=== PATIENT | male | born 1940 | race Hispanic/Latino ===

== ENCOUNTER 2016-10-19 23:22 | Emergency (ER) | payer MEDICARE, OTHER ==
[2016-10-19 23:24] VITALS: BMI 33.9
--- NOTE | 2016-10-19 23:54 | C.PDOC ---
History Of Present Illness pt felt some "twitching " at the pacer site in am and the took his bp and was elevated. No cp , no f/c/n/v. Somewhat anxious Time Seen by Provider: 10/19/16 23:53 Chief Complaint (Nursing): Pacemaker Problem History Per: Patient History/Exam Limitations: no limitations Onset/Duration Of Symptoms: Hrs Current Symptoms Are (Timing): Still Present Severity: Mild Pain Scale Rating Of: 2 Reports Recently: Seen In ED, Treated By A Physician, Hospitalized Recent travel outside of the [place]: No Additional History Per: Patient Past Medical History Reviewed: Historical Data, Nursing Documentation, Vital Signs Vital Signs: Last Vital Signs Temp 98.2 F 10/20/16 00:01 Pulse 64 10/20/16 00:05 Resp 18 10/20/16 00:01 BP 134/83 10/20/16 00:05 Pulse Ox 98 10/20/16 00:45 - Medical History PMH: Diabetes, Gall Bladder Disease (GB removed), HTN, Hypercholesterolemia, Kidney Stones, Malignancy (prostate), Chronic Kidney Disease Surgical History: Appendectomy, Cholecystectomy, Pacemaker (2014), Tonsillectomy - [facility] Procedures ENDO RECTUM POLYPECTOMY (11/02/13) INITIAL INSERT TRANS LEADS INTO ATRIUM & VENTRICLE (01/31/14) INITIAL INSERTION OF DUAL-CHAMBER DEVICE (01/31/14) Family History: States: No Known Family Hx - Social History Hx Tobacco Use: No Hx Alcohol Use: No Hx Substance Use: No - Immunization History Hx Tetanus Toxoid Vaccination: No Hx Influenza Vaccination: No Hx Pneumococcal Vaccination: No Review Of Systems Constitutional: Negative for: Fever, Chills Eyes: Negative for: Redness ENT: Negative for: Throat Pain Cardiovascular: Negative for: Chest Pain Respiratory: Negative for: Shortness of Breath Gastrointestinal: Negative for: Nausea, Vomiting, Abdominal Pain Genitourinary: Negative for: Dysuria Musculoskeletal: Negative for: Back Pain Skin: Negative for: Rash, Lesions, Jaundice, Bruising Neurological: Negative for: Weakness Psych: Positive for: Anxiety Physical Exam - Physical Exam Appears: Non-toxic, No Acute Distress Skin: Warm, Dry Head: Normacephalic Eye(s): bilateral: Normal Inspection Oral Mucosa: Moist Neck: Supple Chest: Symmetrical, Other (pacer left) Cardiovascular: Rhythm Regular Respiratory: No Rales, No Rhonchi, No Wheezing Gastrointestinal/Abdominal: Soft, No Tenderness, No Distention Back: Normal Inspection Extremity: Normal ROM Extremity: Bilateral: Atraumatic, Normal Color And Temperature Neurological/Psych: Oriented x3, Normal Speech, Normal Cognition Gait: Steady ED Course And Treatment - Laboratory Results Result Diagrams: 10/20/16 00:20 10/20/16 00:20 ECG: Interpreted By Me, Viewed By Me ECG Rhythm: Sinus Rhythm (61), 1st Degree HB, Nonspecific Changes (atrial sensed , ventricular paced rhythm) O2 Sat by Pulse Oximetry: 98 Pulse Ox Interpretation: Normal - Radiology CXR: Interpreted by Me, Viewed By Me CXR Interpretation: Yes: Other (pacer in left). No: Infiltrates, Fracture, Pnemothorax Progress Note: cardiac work up Reevaluation Time: 01:30 Reassessment Condition: Improved Medical Decision Making Medical Decision Making: Upon provider reevaluation patient is feeling better, is medically stable, and requires no further treatment in the ED at this time. Patient will be discharged home with . Counseling was provided and all questions were answered regarding diagnosis and need for follow up with Dr Holcomb. There is agreement to discharge plan. Return if symptoms persist or worsen. Disposition Counseled Patient/Family Regarding: Studies Performed, Diagnosis, Need For Followup - Disposition Referrals: Malvin Holcomb MD [Staff Provider] - Disposition: HOME/ ROUTINE Disposition Time: 23:53 Condition: FAIR Additional Instructions: Please return if symptoms recur Instructions: Palpitations (ED), Chronic Hypertension (ED) - Clinical Impression Clinical Impression: HTN (hypertension)
[2016-10-20 00:03] VITALS: TEMP 98.2
[2016-10-20 00:36] LABS: BASO # 0.1 K/uL (0.0-0.2); BASO % 0.7 % (0.0-2.0); EOS % 14.8 % (0.0-4.0); HEMATOCRIT 43.1 % (35.0-51.0); LYMPH # 2.8 K/uL (1.0-4.3); LYMPH % 21.1 % (20.0-40.0); MEAN CELL VOLUME 94.4 fL (80.0-94.0); MEAN CORPUSCULAR HEMOGLOBIN 31.4 pg (27.0-31.0); MEAN CORPUSCULAR HGB CONC 33.3 g/dL (33.0-37.0); MEAN PLATELET VOLUME 10.4 fL (7.2-11.7); MONO # 0.8 K/uL (0.0-0.8); MONO % 5.6 % (0.0-10.0); RED CELL DISTRIBUTION WIDTH 12.8 % (11.5-14.5); WHITE BLOOD COUNT 13.5 K/uL (4.8-10.8)
[2016-10-20 00:38] LABS: INR 1.2
[2016-10-20 00:44] LABS: CHLORIDE 98 mmol/L (98-107)
[2016-10-20 00:45] LABS: POTASSIUM 3.5 mmol/L (3.6-5.2); SODIUM 133 mmol/L (132-148)
[2016-10-20 00:46] VITALS: O2SAT 98
[2016-10-20 00:48] LABS: ALB/GLOB RATIO 1.5 (1.0-2.1); ALKALINE PHOSPHATASE 57 U/L (38-126); ALT/SGPT 29 U/L (21-72); AST/SGOT 22 U/L (17-59); BILIRUBIN,TOTAL 1.1 mg/dL (0.2-1.3); BLOOD UREA NITROGEN 17 mg/dL (9-20); CALCIUM 9.1 mg/dl (8.6-10.4); CARBON DIOXIDE 28 mmol/L (22-30); GFR AFRICAN-AMERICAN > 60; GLUCOSE,RANDOM 86 mg/dL (75-110); TOTAL PROTEIN 6.3 g/dL (6.3-8.3)
[2016-10-20 01:18] LABS: THYROID STIMULATING HORMONE 1.11 mIU/L (0.46-4.68)
[2016-10-20 01:47] VITALS: BP 125/77; PULSE 69; RESP 20
--- NOTE | 2016-10-20 08:17 | RAD ---
PROCEDURE: CHEST RADIOGRAPH, 1 VIEW HISTORY: chest pain COMPARISON: None available. FINDINGS: LUNGS: Clear. PLEURA: No pneumothorax or pleural fluid seen. CARDIOVASCULAR: Normal. Pacemaker and leads are in place. OSSEOUS STRUCTURES: No significant abnormalities. VISUALIZED UPPER ABDOMEN: Normal. OTHER FINDINGS: None. IMPRESSION: No active disease.
--- NOTE | 2016-10-20 17:36 | CARD ---
APPROVED REPORT EKG Measurement Heart [id number] <Conclusion> Atrial-sensed ventricular-paced rhythm with prolonged AV conduction Abnormal ECG
== END 2016-10-20 01:47 | disposition home or self-care (01) ==
LOC: C.ER 23:22
DX: I12.9 Hypertensive chronic kidney disease with stage 1 through stage 4 chronic kidney disease, or unspecified chronic kidney disease (principal); N18.9 Chronic kidney disease, unspecified; R00.2 Palpitations; E11.9 Type 2 diabetes mellitus without complications; E78.00 Pure hypercholesterolemia, unspecified

== ENCOUNTER 2017-01-14 16:34 | Inpatient (IN) | payer MEDICARE, OTHER ==
[2017-01-14 16:42] VITALS: BMI 32.5
[2017-01-14 17:16] LABS: BASO # 0.1 K/uL (0.0-0.2); BASO % 0.9 % (0.0-2.0); EOS # 1.9 K/uL (0.0-0.7); EOS % 16.7 % (0.0-4.0); HEMOGLOBIN 14.3 g/dL (12.0-18.0); LYMPH # 2.2 K/uL (1.0-4.3); LYMPH % 19.6 % (20.0-40.0); MEAN CELL VOLUME 93.7 fL (80.0-94.0); MEAN CORPUSCULAR HEMOGLOBIN 31.8 pg (27.0-31.0); MEAN PLATELET VOLUME 10.1 fL (7.2-11.7); MONO # 0.8 K/uL (0.0-0.8); MONO % 6.7 % (0.0-10.0); NEUT # 6.3 K/uL (1.8-7.0); NEUT % 56.1 % (50.0-75.0); NRBC % 0.1 % (0.0-2.0); RBC 4.5 Mil/uL (4.40-5.90); RED CELL DISTRIBUTION WIDTH 13.5 % (11.5-14.5); WHITE BLOOD COUNT 11.3 K/uL (4.8-10.8)
[2017-01-14 17:18] LABS: ALBUMIN 3.7 g/dL (3.5-5.0)
[2017-01-14 17:20] LABS: AST/SGOT 30 U/L (17-59); GFR AFRICAN-AMERICAN > 60; GFR NON-AFRICAN AMERICAN > 60
[2017-01-14 17:21] LABS: ALB/GLOB RATIO 1.4 (1.0-2.1); ALT/SGPT 28 U/L (21-72); BLOOD UREA NITROGEN 16 mg/dL (9-20); CALCIUM 9.1 mg/dl (8.6-10.4)
--- NOTE | 2017-01-14 17:56 | CT ---
PROCEDURE: CT HEAD WITHOUT CONTRAST. HISTORY: R/O Bleed COMPARISON: None available. TECHNIQUE: Axial computed tomography images were obtained through the head/brain without intravenous contrast. Radiation dose: Total exam DLP = 793.13 mGy-cm. This CT exam was performed using one or more of the following dose reduction techniques: Automated exposure control, adjustment of the mA and/or kV according to patient size, and/or use of iterative reconstruction technique. FINDINGS: HEMORRHAGE: No intracranial hemorrhage. BRAIN: Aguayo-white matter differentiation is preserved. There is no mass, mass effect or abnormal extra-axial fluid collection. There are mild chronic microangiopathic changes. There are punctate calcifications in the temporal lobes and in the midline anterior skullbase, nonspecific and could be related to remote infection/inflammation. VENTRICLES: There is mild age-related global parenchymal volume loss and proportionate enlargement of the ventricles and cortical sulci. CALVARIUM: The skull base and calvarium are normal. PARANASAL SINUSES: There is chronic pansinusitis, worse in the frontal and maxillary sinuses. Superimposed fluid levels in the maxillary sinuses may represent acute sinusitis in the appropriate clinical setting. MASTOID AIR CELLS: Predominantly clear. OTHER FINDINGS: None. IMPRESSION: No acute intracranial abnormality. Chronic pansinusitis, suspect superimposed acute sinusitis in the frontal and maxillary sinuses in the appropriate clinical setting.
--- NOTE | 2017-01-14 18:01 | C.PDOC ---
History Of Present Illness A 76 y/o M with a pacemaker, c/o feeling lightheaded and weakness that began today. Patient reports that he felt well this morning and had run errands with his . Upon returng home he felt tired and took a nap. An hour later his woke him up and when he sat he sat up he felt lightheaded. Then when standing up slowly he felt weak and off balance, drifting to the left. He felt better sitting or supine. Yet, when he tried to stand up and walk again the symptoms recurred. Denies chest pain, diaphoresis, SOB, visual changes, nausea, palpitations, or any other complaints. He reports every time he stands up he feels weak, but feels better when laying down. Time Seen by Provider: 01/14/17 16:42 Chief Complaint (Nursing): Weakness/Neurological Deficit History Per: Patient History/Exam Limitations: no limitations Onset/Duration Of Symptoms: Hrs Current Symptoms Are (Timing): Still Present Activity At Onset Of Symptoms: Sitting, Standing. denies: Lying Associated Symptoms Preceding Syncopal Episode: No Predromal Symptoms (Sudden Onset) Seizure Or Post-ictal Symptoms: None Possible Causative Factor(s): Lightheaded W/Standing Fall Associated With With Symptoms: No Severity: Mild Recent travel outside of the [place]: No Additional History Per: Patient Past Medical History Reviewed: Historical Data, Nursing Documentation, Vital Signs Vital Signs: Last Vital Signs Temp 98.8 F 01/14/17 16:42 Pulse 60 01/14/17 16:42 Resp 20 01/14/17 16:42 BP 144/94 H 01/14/17 16:42 Pulse Ox 96 01/14/17 18:16 - Medical History PMH: Diabetes, Gall Bladder Disease (GB removed), HTN, Hypercholesterolemia, Kidney Stones, Malignancy (prostate), Chronic Kidney Disease Surgical History: Appendectomy, Cholecystectomy, Pacemaker (2014), Tonsillectomy - [facility] Procedures ENDO RECTUM POLYPECTOMY (11/02/13) INITIAL INSERT TRANS LEADS INTO ATRIUM & VENTRICLE (01/31/14) INITIAL INSERTION OF DUAL-CHAMBER DEVICE (01/31/14) Family History: States: Unknown Family Hx - Social History Hx Tobacco Use: No Hx Alcohol Use: No Hx Substance Use: No - Immunization History Hx Tetanus Toxoid Vaccination: No Hx Influenza Vaccination: No Hx Pneumococcal Vaccination: No Review Of Systems Except As Marked, All Systems Reviewed And Found Negative. Constitutional: Positive for: Weakness. Negative for: Sweats Eyes: Negative for: Vision Change Cardiovascular: Positive for: Light Headedness. Negative for: Chest Pain, Palpitations Respiratory: Negative for: Shortness of Breath Gastrointestinal: Negative for: Nausea Physical Exam - Physical Exam Appears: Non-toxic, No Acute Distress Skin: Warm, Dry Head: Atraumatic, Normacephalic Eye(s): bilateral: Normal Inspection, PERRL, EOMI Neck: Supple Cardiovascular: Rhythm Regular (Heart sounds distant but regular) Respiratory: Normal Breath Sounds, No Accessory Muscle Use, No Rales, No Rhonchi , No Wheezing Gastrointestinal/Abdominal: Soft, No Tenderness Neurological/Psych: Oriented x3, Normal Speech, Normal Cognition, Normal Cranial Nerves, Normal Motor, Normal Sensation, Other (No focal deficit) Gait: Steady ED Course And Treatment - Laboratory Results Result Diagrams: 01/14/17 17:06 01/14/17 17:06 Lab Interpretation: No Acute Changes O2 Sat by Pulse Oximetry: 96 (RA) Pulse Ox Interpretation: Normal - CT Scan/US Head Other Rad Studies (CT/US): Read By Radiologist, Radiology Report Reviewed CT/US Interpretation: Accession No. : [id number]. Patient Name / ID : IZA BOURGEOIS / [id number]. Exam Date : 01/14/2017 17:22:49 ( Approved ). Study Comment : Sex / Age : M / 76Y. Creator : TIMOTHY MAN MD. Dictator : TIMOTHY MAN MD. Contact Lens Blocker And Cutter : Occupational Health Professional : TIMOTHY MAN MD. Approver2 : Report Date : 01/14/2017 17:54:41. My Comment : . This report is currently processing and HAS NOT BEEN OFFICIALLY SIGNED BY THE PHYSICIAN - ESTIMATED TIME OF APPROVAL IS 01/14/2017 17:59. PROCEDURE: CT HEAD WITHOUT CONTRAST. HISTORY: R/O Bleed. COMPARISON: None available. TECHNIQUE: Axial computed tomography images were obtained through the head/brain without intravenous contrast. Radiation dose: Total exam DLP = 793.13 mGy-cm. This CT exam was performed using one or more of the following dose reduction techniques: Automated exposure control, adjustment of the mA and/or kV according to patient size, and/or use of iterative reconstruction technique. FINDINGS: HEMORRHAGE: No intracranial hemorrhage. BRAIN: Aguayo-white matter differentiation is preserved. There is no mass, mass effect or abnormal extra- axial fluid collection. There are mild chronic microangiopathic changes. There are punctate calcifications in the temporal lobes and in the midline anterior skullbase, nonspecific and could be related to remote infection/inflammation. VENTRICLES: There is mild age-related global parenchymal volume loss and proportionate enlargement of the ventricles and cortical sulci. CALVARIUM: The skull base and calvarium are normal. PARANASAL SINUSES: There is chronic pansinusitis, worse in the frontal and maxillary sinuses. Superimposed fluid levels in the maxillary sinuses may represent acute sinusitis in the appropriate clinical setting. MASTOID AIR CELLS: Predominantly clear. OTHER FINDINGS: None. IMPRESSION: No acute intracranial abnormality. Chronic pansinusitis, suspect superimposed acute sinusitis in the frontal and maxillary sinuses in the appropriate clinical setting. Progress Note: Orthostatics without change on BP or pulse lying to sitting but patient is symptomatic and becomes lightheaded sitting up. He now reports that he has had significant nasal congestion with a light yellow discharge. He has been usng a nasal saline spray without relief. He denies associated facial pain or pressure and has no fever. CT shows possible acute on chronic sinusitis. Reevaluation Time: 18:23 Reassessment Condition: Unchanged - Physician Consult Information Time Consulting Physician Contacted: 18:23 Physician Contacted: Marta Navarro Outcome Of Conversation: Patient to be admitted for evaluation of weakness. He has a history of degenerative disc disease. He states that he had a CT 6 months ago and was evaluated by neurosurgery. He had follow up PT with improvement of his back symptoms. Medical Decision Making Medical Decision Making: Impression: A 76 y/o M with no cardiac Hx and has a pacemaker, c/o feeling lightheaded and weakness that began today. Feels weak and lightheaded when standing up. Feels better laying down. Plans: * EKG * CT Head w/o contrast * Blood work up * UA * Reassess Disposition - Disposition Disposition: HOSPITALIZED Disposition Time: 18:24 Condition: STABLE Instructions: Weakness (ED) - POA Present On Arrival: None - Clinical Impression Clinical Impression: Weakness generalized, Sinusitis - Scribe Statement The provider has reviewed the documentation as recorded by the Scribe Teo james All medical record entries made by the Catibe were at my direction and personally dictated by me. I have reviewed the chart and agree that the record accurately reflects my personal performance of the history, physical exam, medical decision making, and the department course for this patient. I have also personally directed, reviewed, and agree with the discharge instructions and disposition.
[2017-01-14 18:02] LABS: SQUAMOUS EPITHIAL < 1 /hpf (0-5); URINE BILIRUBIN NEGATIVE (NEGATIVE); URINE BLOOD NEGATIVE (NEGATIVE); URINE CLARITY Clear (Clear); URINE COLOR Yellow (YELLOW); URINE GLUCOSE (UA) NORMAL (Normal); URINE LEUKOCYTE ESTERASE NEG Leu/uL (Negative); URINE NITRATE NEGATIVE (NEGATIVE); URINE PROTEIN NEGATIVE (NEGATIVE); URINE UROBILINOGEN NORMAL mg/dL (0.2-1.0)
--- NOTE | 2017-01-14 21:30 | CP.PCM.HP ---
<Matthew Isaacs - Last Filed: 01/14/17 22:54> History of Present Illness - History of Present Illness History of Present Illness: Patient was evaluated by gag writer at approx 20:15PM on 01/14/2017. CC: Syncope HPI: 76 year old male with extensive PMHx significant for sciatica, neural foraminal lumbar spine stenosis, hypertension, pacemaker placement ( January 2014), hypercholesterolemia, prostate cancer, nephrolithiasis, and deviated septum presents with chief complaint of lightheadedness and weakness which began earlier in the afternoon. Patient states that he was able to complete several errands with his in the morning without difficulties. Patient states that he took a nap in the early afternoon but then felt lightheaded upon arising from nap. He states that he was not even able to stand without feeling weak. Patient called 911 because he did not feel that he was able to ambulate to the car. He was thus brought in by ambulance. On further questioning, patient admitted to dyspnea with exertion after ambulating approximately 3 blocks. He states that he uses 1 pillow at night to sleep. Patient additionally reports sinus congestion of approximately one week's duration. Patient denied sick contacts however states that he has had this problem on and off for several years secondarily due to a deviated septum. Patient states that he bought a saline solution which he started using a few days ago with minimal relief. At this time, patient denies trauma, chest pain, palpitations headaches, visual changes, paresthesias, nausea, vomiting, leg pain, weight changes, recent long distance travel or appetite changes at this time. PMHx-as noted above PSHx-Pacemaker placement 2013, Prostectomy 2001, L4 Discectomy (age 20), Cholecystectomy, Appendectomy, Hernia repair, Tonsillectomy, Mohs surgery right nasal side wall BCC, Rotator Cuff repair, Endo Rectum Polypectomy (2013) FamHx- Mother from multiple myeloma, Father of natural causes , Sister DM, Medications- ASA 81 mg po daily, Hydroclorothiazide 20 mg po daily, Atorvastatin 20 mg po daily, Cozaar 100 mg po daily, folic acid 1 mg po daily Social- previous tobacco user 1ppd up until 35-40 years ago. Patient states that he started smoking at the age of 13, drinks alcohol socially, denies drugs. Served as a Marine. Allergies- Morphine - reaction nausea PMD- Dr. Markie Cardozo Present on Admission - Present on Admission Any Indicators Present on Admission: No Review of Systems - Review of Systems All systems: reviewed and no additional remarkable complaints except - Constitutional Constitutional: absent: Daytime Sleepiness, Headache, Weight Gain, Weight Loss - EENT Eyes: As Per HPI. absent: Blurred Vision, Change in Vision Ears: As Per HPI. absent: Decreased Hearing Nose/Mouth/Throat: As Per HPI, Nasal Congestion, Sinus Pain, Sinus Pressure - Cardiovascular Cardiovascular: Dyspnea, Dyspnea on Exertion. absent: Chest Pain, Chest Pain at Rest, Pedal Edema - Respiratory Respiratory: Dyspnea, Dyspnea on Exertion. absent: Cough - Gastrointestinal Gastrointestinal: absent: Abdominal Pain, Nausea, Vomiting - Genitourinary Genitourinary: absent: Change in Urinary Stream, Difficulty Urinating - Musculoskeletal Musculoskeletal: Abnormal Gait. absent: Myalgias, Numbness - Integumentary Integumentary: absent: Bleeding Lesions, Change in Hair - Neurological Neurological: Abnormal Gait, Disequilibrium, Dizziness, Syncope. absent: Numbness, Headaches, Loss of Vision, Paresthesias, Tingling, Tremor, Vertigo, Weakness - Psychiatric Psychiatric: As Per HPI - Endocrine Endocrine: As Per HPI. absent: Heat Intolorance, Palpitations - Hematologic/Lymphatic Hematologic: As Per HPI. absent: Easy Bleeding Past Patient History - Tetanus Immunizations Tetanus Immunization: Unknown - Past Medical History & Family History Past Medical History?: Yes - Past Social History Smoking Status: Former Smoker Alcohol: Social Drugs: Denies Home Situation {Lives}: With Family - CARDIAC Hx Hypercholesterolemia: Yes Hx Hypertension: Yes Hx Pacemaker: Yes (2014) - PULMONARY Hx Respiratory Disorders: No - NEUROLOGICAL Hx Neurological Disorder: No - HEENT Hx HEENT Problems: Yes Hx Cataracts: Yes (MILD) - RENAL Hx Chronic Kidney Disease: Yes Hx Kidney Stones: Yes - ENDOCRINE/METABOLIC Hx Diabetes Mellitus Type 2: Yes - HEMATOLOGICAL/ONCOLOGICAL Hx Blood Disorders: Yes Hx Cancer: Yes (PROSTATE, s/p TURP) - INTEGUMENTARY Hx Dermatological Problems: Yes Hx Basil Cell: Yes (RIGHT NOSE) - MUSCULOSKELETAL/RHEUMATOLOGICAL Hx Musculoskeletal Disorders: Yes Hx Back Pain: Yes Hx Herniated Disk: Yes (L 4 removed) Other/Comment: sciatica - GASTROINTESTINAL Hx Gall Bladder Disease: Yes (GB removed) - GENITOURINARY/GYNECOLOGICAL Hx Genitourinary Disorders: Yes Hx Prostate Cancer: Yes - PSYCHIATRIC Hx Substance Use: No - SURGICAL HISTORY Hx Appendectomy: Yes Hx Cholecystectomy: Yes Hx Tonsillectomy: Yes - ANESTHESIA Hx Anesthesia: Yes Hx Anesthesia Reactions: Yes (morphine) Meds Allergies/Adverse Reactions: Allergies Allergy/AdvReac Type Severity Reaction Status Date / Time morphine Allergy Verified 01/14/17 16:41 Physical Exam - Constitutional Appears: Non-toxic, No Acute Distress - Head Exam Head Exam: ATRAUMATIC, NORMAL INSPECTION, NORMOCEPHALIC - Eye Exam Eye Exam: EOMI, Normal appearance, PERRL. absent: Conjunctival injection, Nystagmus, Scleral icterus Pupil Exam: NORMAL ACCOMODATION, PERRL. absent: Miosis - ENT Exam ENT Exam: Mucous Membranes Moist - Expanded ENT Exam Expanded Ear exam: absent: Auricular Trauma (retracted tympanic membrane b/l) - Neck Exam Neck exam: Positive for: Full Rom, Normal Inspection. Negative for: Tenderness - Respiratory Exam Respiratory Exam: Clear to Auscultation Bilateral, NORMAL BREATHING PATTERN. absent: Wheezes, Respiratory Distress - Cardiovascular Exam Cardiovascular Exam: +S1, +S2. absent: Bradycardia, Tachycardia, Clicks - Expanded Cardiovascular Exam Expanded Peripheral pulses: Dorsalis Pedis Left: 2+, Dorsalis Pedis Right: 2+, Radial Left: 2+, Radial Right: 2+ - GI/Abdominal Exam GI & Abdominal Exam: Normal Bowel Sounds, Soft. absent: Guarding, Rigid, Tenderness - Extremities Exam Extremities exam: Positive for: full ROM, normal capillary refill, normal inspection, pedal pulses present. Negative for: calf tenderness, joint swelling , pedal edema, tenderness - Back Exam Back exam: FULL ROM - Neurological Exam Neurological exam: Alert, CN II-XII Intact, Oriented x3, Reflexes Normal - Expanded Neurological Exam Expanded Patient oriented to: person, place, time Cranial nerves: EOM's Intact: Normal Cerebellar Function: Finger to Nose: Normal, Heel to [place]: Normal, Romberg: Normal Upper motor neuron: Babinski Sign: Normal, Pronator Drift: Normal Sensory exam: Lower Extremity 2 Point Discrimination: Normal, Lower Extremity Light Touch: Normal, Lower Extremity Pin Prick: Normal, Lower Extremity Temperature: Normal, Upper Extremity Light Touch: Normal, Upper Extremity Temperature: Normal Neuro motor strength exam: Left Upper Extremity: 5, Right Upper Extremity: 5, Left Lower Extremity: 5, Right Lower Extremity: 5 DTR: Brachioradialis Left: 2+, Brachioradialis Right: 2+, Patellar Left: 2+, Patellar Right: 2+ - Psychiatric Exam Psychiatric exam: Normal Affect, Normal Mood - Skin Skin Exam: Dry, Intact, Normal Color, Warm Additional comments: superficial LE vasculature appreciated Results - Vital Signs Recent Vital Signs: Last Vital Signs Temp 98.2 F 01/14/17 18:51 Pulse 60 01/14/17 18:51 Resp 18 01/14/17 18:51 BP 142/92 H 01/14/17 18:51 Pulse Ox 97 01/14/17 18:51 - Labs Result Diagrams: 01/14/17 17:06 01/14/17 17:06 Labs: Laboratory Results - last 24 hr 01/14/17 01/14/17 01/14/17 17:06 17:06 17:26 WBC 11.3 H RBC 4.50 Hgb 14.3 Hct 42.2 MCV 93.7 MCH 31.8 H MCHC 34.0 RDW 13.5 Plt Count 159 MPV 10.1 Neut % (Auto) 56.1 Lymph % (Auto) 19.6 L Borden % (Auto) 6.7 Eos % (Auto) 16.7 H Baso % (Auto) 0.9 Neut # 6.3 Lymph # 2.2 Borden # 0.8 Eos # 1.9 H Baso # 0.1 Sodium 139 Potassium 3.9 Chloride 99 Carbon Dioxide 27 Anion Gap 17 BUN 16 Creatinine 0.7 L Est GFR ( Amer) > 60 Est GFR (Non-Af Amer) > 60 Random Glucose 114 H Calcium 9.1 Magnesium 2.0 Total Bilirubin 0.9 AST 30 ALT 28 Alkaline Phosphatase 52 Troponin I < 0.0120 Total Protein 6.3 Albumin 3.7 Globulin 2.6 Albumin/Globulin Ratio 1.4 Urine Color Yellow Urine Clarity Clear Urine pH 5.0 Ur Specific [place] 1.020 Urine Protein Negative Urine Glucose (UA) Normal Urine Ketones Negative Urine Blood Negative Urine Nitrate Negative Urine Bilirubin Negative Urine Urobilinogen Normal Ur Leukocyte Esterase Neg Urine WBC (Auto) 1 Urine RBC (Auto) 2 Ur Squamous Epith Cells < 1 Assessment & Plan (1) Syncope Assessment and Plan: Head CT- negative for acute intracranial bleed; chronic pansinusitis appreciated Troponin 1 negative EKG- AV rhythm paced at approx 60 bpm F/U Echo and carotid dopplers F/U Cardiology Consult (Dr. Holcomb). Patient has history of pacemaker and follows up with Dr. Dobson outpatient. Patient may benefit from pacemaker interrogation. F/U AM labs: Thyroid panel, A1c, Lipid Panel and other pertinent labs Status: Acute (2) Chronic pansinusitis Assessment and Plan: Chronic pansinusitis noticed on Head CT F/U Chest XRAY F/U Dr. Jimenez ( ENT) Status: Chronic (3) HTN (hypertension) Assessment and Plan: Patient to continue home medications (Diovan) however non-formulary. Will begin Losartan 100 mg daily HCTZ 25 mg daily Carvedilol 6.25 mg PO BID Cont to monitor Status: Chronic Priority: Low (4) Hypercholesteremia Assessment and Plan: Patient to continue statin. Home medication: Atorvastatin not available here and thus will begin Crestor 10mg F/U Lipid panel and A1c Status: Chronic (5) Prophylactic measure Assessment and Plan: SCDs Heparin SC Q8H No GI prophylaxis indicated at this time. Status: Acute <Hans Meadows - Last Filed: 01/15/17 06:36> Results - Vital Signs Recent Vital Signs: Last Vital Signs Temp 98.2 F 01/14/17 23:25 Pulse 59 L 01/14/17 23:25 Resp 20 01/14/17 23:25 BP 113/73 01/14/17 23:25 Pulse Ox 96 01/14/17 23:25 - Labs Result Diagrams: 01/14/17 17:06 01/14/17 17:06 Assessment & Plan - Date & Time Date: 01/15/17 (I have seen and examined the patient. I agree with the findings and plan of care as documented by Dr. Isaacs. Patient with pre- syncope - denied actual loss of consciousness, but felt like he would. Denies any head trauma or falls. Check ROMIx3 with EKG. Also with history of hypertension and pacemaker placement. Consult to cardio. Monitor on tele. CT shows chronic pansinusitis. Consult to ENT. Monitor for acute changes.) Time: 06:33 Attending/Attestation - Attestation I have personally seen and examined this patient.: Yes I have fully participated in the care of the patient.: Yes I have reviewed all pertinent clinical information: Yes
[2017-01-15 08:01] LABS: ALB/GLOB RATIO 1.5 (1.0-2.1); ALBUMIN 3.5 g/dL (3.5-5.0); ALT/SGPT 26 U/L (21-72); AST/SGOT 24 U/L (17-59); BLOOD UREA NITROGEN 14 mg/dL (9-20); GFR AFRICAN-AMERICAN > 60; GFR NON-AFRICAN AMERICAN > 60; HDL CHOLESTEROL 29 mg/dL (30-70); MAGNESIUM 2.1 mg/dL (1.6-2.3)
[2017-01-15 08:12] LABS: LDL CHOLESTEROL 84 mg/dL (0-129)
--- NOTE | 2017-01-15 08:59 | RAD ---
HISTORY: Generalized weakness COMPARISON: 10/20/2016 FINDINGS: LUNGS: Mild venous congestion with patchy bibasilar airspace opacities. PLEURA: No significant pleural effusion identified, no pneumothorax apparent. CARDIOVASCULAR: Mild cardiomegaly. Left-sided pacemaker. OSSEOUS STRUCTURES: Degenerative changes in the spine and shoulders. VISUALIZED UPPER ABDOMEN: Normal. OTHER FINDINGS: None. IMPRESSION: Mild venous congestion with patchy bibasilar airspace opacities.
--- NOTE | 2017-01-15 11:01 | CARD ---
APPROVED REPORT EKG Measurement Heart [id number] DC 218P [id number] <Conclusion> Poor data quality, interpretation may be adversely affected AV dual-paced rhythm with prolonged AV conduction Abnormal ECG
--- NOTE | 2017-01-15 11:35 | CARD ---
APPROVED REPORT EXAM: Two-dimensional and M-mode echocardiogram with Doppler and color Doppler. Other Information Quality : GoodRhythm : NSR INDICATION Syncope CANCER PROSTATE Surgery/Intervention Pacemaker: RISK FACTORS Hypertension Hyperlipidemia 2D DIMENSIONS LVOT Diameter2.0 (1.8-2.4cm) M-Mode DIMENSIONS RVDd1.33 (2.1-3.2cm)Left Atrium (MM)3.59 (2.5-4.0cm) IVSd1.05 (0.7-1.1cm)Aortic Root3.79 (2.2-3.7cm) LVDd4.96 (4.0-5.6cm)Aortic Cusp Exc.1.09 (1.5-2.0cm) PWd1.05 (0.7-1.1cm)FS (%) 23 % LVDs3.83 (2.0-3.8cm)LVEF (%)46 (>50%) Aortic Valve AoV Peak Vtodcrsu747.2cm/sAoV VTI58.5cmAO Peak GR.25mmHg LVOT Peak Gtdqfxho30.5cm/sLVOT VTI16.69cmAO Mean GR.16mmHg ARIES (VMAX)0.53bp1ORV (VTI)0.91cm2 Mitral Valve MV E Cxoejwui93.2cm/sMV A Fchkocbj261.7cm/sE/A ratio0.5 TDI E/Lateral E'0.0E/Medial E'0.0 Tricuspid Valve TR Peak Azjvufdk686bg/sTR Peak Gr.14pfTeQSZI19zzGz LEFT VENTRICLE The left ventricle is normal size. There is normal left ventricular wall thickness. The left ventricular function is normal. The left ventricular ejection fraction is within the normal range. Septal motion consistent with conduction abnormality. Transmitral Doppler flow pattern is Grade I-abnormal relaxation pattern. No left ventricle thrombus noted on this study. There is no ventricular septal defect visualized. There is no left ventricular aneurysm. There is no mass noted in the left ventricle. RIGHT VENTRICLE The right ventricle is normal size. There is normal right ventricular wall thickness. The right ventricular systolic function is normal. ATRIA The left atrium size is normal. The right atrium size is normal. The interatrial septum is intact with no evidence for an atrial septal defect. AORTIC VALVE The aortic valve is mildly to moderately thickened. No aortic regurgitation is present. There is moderate valvular aortic stenosis. Calculated aortic valve area is 0.95 cm2 with maximum pressure gradient of 25 mmHg and mean pressure gradient of 16 mmHg. There is no aortic valvular vegetation. MITRAL VALVE The mitral valve is normal in structure and function. There is no evidence of mitral valve prolapse. There is no mitral valve stenosis. There is no mitral valve regurgitation noted. TRICUSPID VALVE The tricuspid valve is normal in structure and function. There is mild to moderate tricuspid regurgitation. Right ventricular systolic pressure is estimated at 30-40 mmHg. There is no tricuspid valve prolapse or vegetation. There is no tricuspid valve stenosis. PULMONIC VALVE The pulmonary valve is normal in structure and function. There is no pulmonic valvular regurgitation. There is no pulmonic valvular stenosis. GREAT VESSELS The aortic root is normal in size. The ascending aorta is normal in size. The pulmonary artery is normal. The IVC is normal in size and collapses >50% with inspiration. PERICARDIAL EFFUSION The pericardium appears normal. There is no pleural effusion. <Conclusion> The left ventricular function is normal. The left ventricular ejection fraction is within the normal range. Septal motion consistent with conduction abnormality. There is moderate valvular aortic stenosis. Calculated aortic valve area is 0.95 cm2 with maximum pressure gradient of 25 mmHg and mean pressure gradient of 16 mmHg. There is mild to moderate tricuspid regurgitation. Right ventricular systolic pressure is estimated at 30-40 mmHg.
--- NOTE | 2017-01-15 15:36 | VASCLAB ---
PROCEDURE: HISTORY: Syncope COMPARISON: 05/22/2016. TECHNIQUE: Grayscale and duplex Doppler evaluation of the cervical carotid and vertebral arteries were performed. The common carotid, carotid bifurcations and cervical Internal Carotid Artery (ICA) and proximal External Carotid Artery (ECA) were evaluated. The vertebral arteries were evaluated for gross patency and flow direction. Report prepared by REGLA Allison FINDINGS: RIGHT CAROTID ARTERIES: 1. Common Carotid Artery: No significant focal plaque formation of the right common carotid artery. Maximum Peak Systolic velocity: 113 cm/sec: End-diastolic velocity 20 cm/sec. 2. Carotid Bifurcation: Minimal calcific plaque formation. Maximum Peak Systolic velocity: 61 cm/sec: End-diastolic velocity 18 cm/sec. 3. Internal Carotid Artery: Mild heterogeneous plaque. 3.1. Proximal Segment: Peak systolic velocity 57 cm/sec: End-diastolic velocity 21 cm/sec - % stenosis 0-15% 3.2. Middle Segment: Peak systolic velocity 60 cm/sec: End-diastolic velocity 22 cm/sec - % stenosis 0-15% 3.3. Distal Segment: Peak systolic velocity 48 cm/sec: End-diastolic velocity 19 cm/sec - % stenosis 0-15% 4. External Carotid Artery: No significant focal plaque formation. Peak systolic velocity 69 cm/sec 5. ICA/CCA Ratio: 0.9 LEFT CAROTID ARTERIES: 1. Common Carotid Artery: No significant focal plaque formation of the left common carotid artery. Maximum Peak Systolic velocity: 72 cm/sec: End-diastolic velocity 19 cm/sec. 2. Carotid Bifurcation: Calcific plaque formation. Maximum Peak Systolic velocity: 47 cm/sec: End-diastolic velocity 18 cm/sec. 3. Internal Carotid Artery: Mild heterogeneous plaque. 3.1. Proximal Segment: Peak systolic velocity 77 cm/sec: End-diastolic velocity 29 cm/sec - % stenosis 0-15% 3.2. Middle Segment: Peak systolic velocity 70 cm/sec: End-diastolic velocity 23 cm/sec - % stenosis 0-15% 3.3. Distal Segment: Peak systolic velocity 48 cm/sec: End-diastolic velocity 21 cm/sec - % stenosis 0-15% 4. External Carotid Artery: No significant focal plaque formation. Peak systolic velocity 72 cm/sec 5. ICA/CCA Ratio: 1.3 VERTEBRAL ARTERIES: 1. Right Vertebral Artery: The right vertebral artery flow direction is antegrade. 2. Left Vertebral Artery: The left vertebral artery flow direction is antegrade. OTHER FINDINGS: 1. Right Brachial Blood pressure: 140 mmHg. 2. Left Brachial Blood pressure: 150 mmHg. IMPRESSION: RIGHT: Duplex scan does not suggest hemodynamically significant stenosis of the right extracranial carotid arteries. LEFT: Duplex scan does not suggest hemodynamically significant stenosis of the left extracranial carotid arteries.
--- NOTE | 2017-01-15 17:29 | CP.PCM.CON ---
History of Present Illness - History of Present Illness History of Present Illness: [place], and a day later tried to stand up. drifted to the right, happened a few times. No syncope or light headedness described, only imbalance, had to hold on to walk. no chest pain. Pt has no CAD. Known mild , and an echo earlier this year showed a deterioration in LV EF. Pt was placed on a beta smith, and EF on the recent echo today is improved. Review of Systems - Review of Systems All systems: reviewed and no additional remarkable complaints except (as abov.e) Past Patient History - Tetanus Immunizations Tetanus Immunization: Unknown - Past Medical History & Family History Past Medical History?: Yes - Past Social History Smoking Status: Former Smoker Alcohol: Social Drugs: Denies Home Situation {Lives}: With Family - CARDIAC Hx Hypercholesterolemia: Yes Hx Hypertension: Yes - PULMONARY Hx Respiratory Disorders: No - NEUROLOGICAL Hx Neurological Disorder: No - HEENT Hx HEENT Problems: Yes Hx Cataracts: Yes (MILD) - RENAL Hx Chronic Kidney Disease: Yes Hx Kidney Stones: Yes - ENDOCRINE/METABOLIC Hx Diabetes Mellitus Type 2: Yes - HEMATOLOGICAL/ONCOLOGICAL Hx Blood Disorders: Yes Hx Cancer: Yes (PROSTATE, s/p TURP) - INTEGUMENTARY Hx Dermatological Problems: Yes Hx Basil Cell: Yes (RIGHT NOSE) - MUSCULOSKELETAL/RHEUMATOLOGICAL Hx Musculoskeletal Disorders: Yes Hx Back Pain: Yes Hx Herniated Disk: Yes (L 4 removed) Other/Comment: sciatica - GASTROINTESTINAL Hx Gall Bladder Disease: Yes (GB removed) - GENITOURINARY/GYNECOLOGICAL Hx Genitourinary Disorders: Yes Hx Prostate Cancer: Yes - PSYCHIATRIC Hx Substance Use: No - SURGICAL HISTORY Hx Appendectomy: Yes Hx Cholecystectomy: Yes Hx Tonsillectomy: Yes - ANESTHESIA Hx Anesthesia: Yes Hx Anesthesia Reactions: Yes (morphine) Meds Allergies/Adverse Reactions: Allergies Allergy/AdvReac Type Severity Reaction Status Date / Time morphine Allergy Verified 01/14/17 16:41 - Medications Medications: Current Medications Aspirin (Ecotrin) 81 mg PO DAILY [facility] Last Admin: 01/15/17 09:51 Dose: 81 mg Carvedilol (Coreg) 6.25 mg PO BID [facility] Last Admin: 01/15/17 09:52 Dose: 6.25 mg Folic Acid (Folic Acid) 1 mg PO DAILY [facility] Last Admin: 01/15/17 09:54 Dose: Not Given Heparin Sodium (Porcine) (Heparin) 5,000 units SC Q8 [facility] Last Admin: 01/15/17 14:13 Dose: 5,000 units Hydrochlorothiazide (Hydrodiuril) 25 mg PO DAILY [facility] Last Admin: 01/15/17 09:52 Dose: 25 mg Losartan Potassium (Cozaar) 100 mg PO DAILY [facility] Last Admin: 01/15/17 09:52 Dose: 100 mg Rosuvastatin Calcium (Crestor) 10 mg PO [facility] Physical Exam - Constitutional Appears: Well - Head Exam Head Exam: ATRAUMATIC - Eye Exam Eye Exam: EOMI Pupil Exam: NORMAL ACCOMODATION - ENT Exam ENT Exam: Mucous Membranes Moist - Neck Exam Neck exam: Positive for: Full Rom - Respiratory Exam Respiratory Exam: Clear to Auscultation Bilateral - Cardiovascular Exam Cardiovascular Exam: REGULAR RHYTHM - GI/Abdominal Exam GI & Abdominal Exam: Normal Bowel Sounds - Extremities Exam Extremities exam: Positive for: normal inspection - Back Exam Back exam: NORMAL INSPECTION - Neurological Exam Neurological exam: Alert, Oriented x3, Reflexes Normal - Psychiatric Exam Psychiatric exam: Normal Affect, Normal Mood - Skin Skin Exam: Normal Color Results - Vital Signs Recent Vital Signs: Last Vital Signs Temp 98.2 F 01/15/17 16:46 Pulse 60 01/15/17 16:46 Resp 20 01/15/17 16:46 BP 125/80 01/15/17 16:46 Pulse Ox 96 01/15/17 16:46 - Labs Result Diagrams: 01/14/17 17:06 01/15/17 07:32 Labs: Laboratory Results - last 24 hr 01/15/17 01/15/17 01/15/17 07:32 07:32 07:32 APTT Sodium 141 Potassium 3.6 Chloride 99 Carbon Dioxide 31 H Anion Gap 15 BUN 14 Creatinine 0.8 Est GFR ( Amer) > 60 Est GFR (Non-Af Amer) > 60 Random Glucose 109 Hemoglobin A1c 6.1 Calcium 9.0 Phosphorus 2.8 Magnesium 2.1 Total Bilirubin 1.2 AST 24 ALT 26 Alkaline Phosphatase 54 Total Protein 5.9 L Albumin 3.5 Globulin 2.4 Albumin/Globulin Ratio 1.5 Triglycerides 123 D Cholesterol 122 LDL Cholesterol Direct 84 HDL Cholesterol 29 L Free T4 0.87 TSH 3rd Generation 0.51 01/15/17 07:32 APTT 34 Sodium Potassium Chloride Carbon Dioxide Anion Gap BUN Creatinine Est GFR ( Amer) Est GFR (Non-Af Amer) Random Glucose Hemoglobin A1c Calcium Phosphorus Magnesium Total Bilirubin AST ALT Alkaline Phosphatase Total Protein Albumin Globulin Albumin/Globulin Ratio Triglycerides Cholesterol LDL Cholesterol Direct HDL Cholesterol Free T4 TSH 3rd Generation - EKG Data EKG Interpreted by: Myself EKG shows normal: Sinus rhythm (NSR, av PPM) Assessment & Plan - Assessment and Plan (Free Text) Assessment: 1, Pt is not orthostatic. Symptoms are necrological, and not cardiovascular related. Pt has sinusitis on the CT, and very possible extending to middle ear inflammation and imbalance. Recommend treatment of sinusitis, and consider neurological evaluation. 2. LC EF has improved. Continue meds. 3. PPM is stable. 4. Mild aortic stenosis, unchanged.
--- NOTE | 2017-01-15 20:09 | CP.PCM.PN ---
<James Gibbs - Last Filed: 01/15/17 20:05> Subjective - Date & Time of Evaluation Date of Evaluation: 01/15/17 Time of Evaluation: 07:55 - Subjective Subjective: PGY1 Medicine Note for Dr. West Patient seen and examined this morning at bedside. Patient states he is feeling much stronger compared to yesterday. He states he is no longer dizzy upon standing. Patient is currently in no pain. Denies f/c, n/v, sob or cp. Objective - Vital Signs/Intake and Output Vital Signs (last 24 hours): Temp Pulse Resp BP Pulse Ox 98.2 F 60 20 125/80 96 01/15/17 15:40 01/15/17 15:40 01/15/17 15:40 01/15/17 15:40 01/15/17 15:40 - Medications Medications: Current Medications Aspirin (Ecotrin) 81 mg PO DAILY [facility] Last Admin: 01/15/17 09:51 Dose: 81 mg Carvedilol (Coreg) 6.25 mg PO BID [facility] Last Admin: 01/15/17 18:48 Dose: 6.25 mg Folic Acid (Folic Acid) 1 mg PO DAILY [facility] Last Admin: 01/15/17 09:54 Dose: Not Given Heparin Sodium (Porcine) (Heparin) 5,000 units SC Q8 [facility] Last Admin: 01/15/17 14:13 Dose: 5,000 units Hydrochlorothiazide (Hydrodiuril) 25 mg PO DAILY [facility] Last Admin: 01/15/17 09:52 Dose: 25 mg Losartan Potassium (Cozaar) 100 mg PO DAILY [facility] Last Admin: 01/15/17 09:52 Dose: 100 mg Rosuvastatin Calcium (Crestor) 10 mg PO HS [facility] - Labs Labs: 01/15/17 07:32 APTT 34 SECONDS (21-34) 01/15/17 07:32 - Constitutional Appears: Non-toxic, No Acute Distress - Head Exam Head Exam: ATRAUMATIC, NORMOCEPHALIC - ENT Exam ENT Exam: Mucous Membranes Moist - Respiratory Exam Respiratory Exam: Clear to Ausculation Bilateral, NORMAL BREATHING PATTERN. absent: Accessory Muscle Use, Respiratory Distress - Cardiovascular Exam Cardiovascular Exam: REGULAR RHYTHM, +S1, +S2 Additional comments: Dual chamber pacemaker - GI/Abdominal Exam GI & Abdominal Exam: Soft, Normal Bowel Sounds. absent: Distended, Guarding, Rigid, Tenderness - Extremities Exam Extremities Exam: absent: Calf Tenderness, Pedal Edema - Neurological Exam Neurological Exam: Alert, Awake, Normal Gait, Oriented x3 Neuro motor strength exam: Left Upper Extremity: 5, Right Upper Extremity: 5, Left Lower Extremity: 5, Right Lower Extremity: 5 - Psychiatric Exam Psychiatric exam: Normal Affect, Normal Mood - Skin Skin Exam: Dry, Normal Color, Warm Assessment and Plan - Assessment and Plan (Free Text) Plan: (1) Syncope Assessment and Plan: Head CT- negative for acute intracranial bleed; chronic pansinusitis appreciated Troponin 1 negative Echo shows moderate Aortic Stenosis; EF = 46% F/U Cardiology Consult (Dr. Holcomb). Patient has history of pacemaker and follows up with Dr. Dobson outpatient. Patient may benefit from pacemaker interrogation. Thyroid Studies (01/15) Free T4: .87 ; TSH:.51 (2) Chronic pansinusitis Assessment and Plan: Chronic pansinusitis noticed on Head CT F/U Dr. Jimenez (ENT) (3) HTN (hypertension) Assessment and Plan: Patient to continue home medications (Diovan) however non-formulary. Losartan 100 mg daily HCTZ 25 mg daily Carvedilol 6.25 mg PO BID Cont to monitor (4) Hypercholesteremia Assessment and Plan: Patient to continue statin. Home medication: Atorvastatin not available here and thus will begin Crestor 10mg Lipid Panel (01/15): LDL 84; HDL 29; Chol. 122; Trigly. 123 HgbA1c (01/15): 6.1 (5) Prophylactic measure Assessment and Plan: SCDs Heparin SC Q8H No GI prophylaxis indicated at this time. <Alberto West - Last Filed: 01/16/17 10:16> Objective - Vital Signs/Intake and Output Vital Signs (last 24 hours): Temp Pulse Resp BP Pulse Ox 97.9 F 71 18 132/71 98 01/16/17 07:30 01/16/17 07:30 01/16/17 07:30 01/16/17 07:30 01/16/17 07:30 - Medications Medications: Current Medications Amoxicillin/Clavulanate Potassium (Augmentin 875 Mg-125 Mg Tab) 1 tab PO Q12 [facility] Last Admin: 01/16/17 09:53 Dose: 1 tab Aspirin (Ecotrin) 81 mg PO DAILY [facility] Last Admin: 01/16/17 09:52 Dose: 81 mg Carvedilol (Coreg) 6.25 mg PO BID [facility] Last Admin: 01/16/17 09:52 Dose: 6.25 mg Folic Acid (Folic Acid) 1 mg PO DAILY [facility] Last Admin: 01/16/17 09:52 Dose: 1 mg Heparin Sodium (Porcine) (Heparin) 5,000 units SC Q8 [facility] Last Admin: 01/16/17 06:39 Dose: 5,000 units Hydrochlorothiazide (Hydrodiuril) 25 mg PO DAILY [facility] Last Admin: 01/16/17 09:52 Dose: 25 mg Losartan Potassium (Cozaar) 100 mg PO DAILY [facility] Last Admin: 01/16/17 09:52 Dose: 100 mg Rosuvastatin Calcium (Crestor) 10 mg PO HS [facility] Last Admin: 01/15/17 22:05 Dose: 10 mg - Labs Labs: 01/16/17 07:20 01/16/17 07:52 APTT 34 SECONDS (21-34) 01/15/17 07:32 Attending/Attestation - Attestation I have personally seen and examined this patient.: Yes I have fully participated in the care of the patient.: Yes I have reviewed all pertinent clinical information, including history, physical exam and plan: Yes Notes (Text): 01/16/17 10:15 Patient was seen and examined at bedside with the resident Patient is feeling much better. Denies any dizziness at this time. Denies any symptoms of disequilibrium Cardiology evaluation is pending Patient will be started on antibiotic for sinusitis I discussed the plan of care with the resident agree with the assessment and plan documented above with the exception noted here.
[2017-01-16 00:46] VITALS: RESP 18
--- NOTE | 2017-01-16 03:14 | CON ---
DATE: 01/15/2017 REQUESTING PHYSICIAN: Alberto West MD REASON FOR CONSULTATION: Dizziness and sinusitis history. HISTORY OF PRESENT ILLNESS: This is a 76-year-old male who has an episode of dizziness yesterday, which lasted a few minutes and resolved. There is no hearing loss. No ringing. The episode was moderate in intensity and constant. There is no dizziness now. He also has nasal congestion and discharge with sinus pressure for the past 2 years on and off, moderate in intensity and on both sides. PAST MEDICAL HISTORY: As noted in the chart by me. MEDICATIONS: As noted in the chart by me. PHYSICAL EXAMINATION: HEAD: Atraumatic and normocephalic. FACE: Good facial movements bilaterally. CONSTITUTIONAL: Well fed, well nourished. COMMUNICATION: Communicates well appropriately. EXTERNAL NOSE: No masses. No lesions. No erythema. No edema. INTERNAL NOSE: Deviated septum. Moderate edema and erythema of the mucosa noted turbinates. ORAL CAVITY AND OROPHARYNX: No masses. No lesions. No erythema. No edema. NECK: Supple. THYROID: No thyromegaly. No goiter. LYMPH NODES: No lymphadenopathy of the neck. LIPS AND GUMS: No masses. No lesions. No erythema. No edema. ASSESSMENT: 1. Dizziness. 2. Sinusitis. 3. Deviated septum. 4. Lowest turbinate. PLAN: The patient should be started on antibiotics, Augmentin is okay, and sent home on Augmentin. Followup in the office as an outpatient. The dizziness may be caused by the ears, he needs to have for him as an outpatient. Robbie Jimenez MD
[2017-01-16 07:40] LABS: BASO # 0.1 K/uL (0.0-0.2); BASO % 0.8 % (0.0-2.0); EOS # 1.6 K/uL (0.0-0.7); EOS % 14.5 % (0.0-4.0); HEMOGLOBIN 14.7 g/dL (12.0-18.0); LYMPH # 2.6 K/uL (1.0-4.3); LYMPH % 23.7 % (20.0-40.0); MEAN CELL VOLUME 94.5 fL (80.0-94.0); MEAN CORPUSCULAR HEMOGLOBIN 31.8 pg (27.0-31.0); MEAN CORPUSCULAR HGB CONC 33.6 g/dL (33.0-37.0); MEAN PLATELET VOLUME 10.2 fL (7.2-11.7); MONO # 0.8 K/uL (0.0-0.8); NEUT # 5.8 K/uL (1.8-7.0); RBC 4.64 Mil/uL (4.40-5.90); RED CELL DISTRIBUTION WIDTH 13.4 % (11.5-14.5); WHITE BLOOD COUNT 10.8 K/uL (4.8-10.8)
[2017-01-16 08:07] VITALS: BP 132/71; PULSE 71; TEMP 97.9; O2SAT 98
[2017-01-16 08:45] LABS: ALBUMIN 3.4 g/dL (3.5-5.0)
[2017-01-16 08:48] LABS: ALB/GLOB RATIO 1.3 (1.0-2.1); ALT/SGPT 27 U/L (21-72); AST/SGOT 22 U/L (17-59); BLOOD UREA NITROGEN 12 mg/dL (9-20); GFR AFRICAN-AMERICAN > 60; GFR NON-AFRICAN AMERICAN > 60
[2017-01-16 08:49] LABS: CALCIUM 8.8 mg/dl (8.6-10.4)
[2017-01-16] MEDS ORDERED: Amoxicillin-Clav 875-125 mg Tab PO SCH (10:00)
--- NOTE | 2017-01-16 20:33 | CP.PCM.DIS ---
<James Gibbs - Last Filed: 01/16/17 20:29> Provider - Provider Date of Admission: 01/14/17 21:09 Attending physician: Alberto West MD Time Spent in preparation of Discharge (in minutes): 30 Diagnosis - Discharge Diagnosis (1) Dizziness Status: Acute Hospital Course - Lab Results Lab Results: Most Recent Lab Values WBC 10.8 K/uL (4.8-10.8) 01/16/17 07:20 RBC 4.64 Mil/uL (4.40-5.90) 01/16/17 07:20 Hgb 14.7 g/dL (12.0-18.0) 01/16/17 07:20 Hct 43.8 % (35.0-51.0) 01/16/17 07:20 MCV 94.5 fL (80.0-94.0) H 01/16/17 07:20 MCH 31.8 pg (27.0-31.0) H 01/16/17 07:20 MCHC 33.6 g/dL (33.0-37.0) 01/16/17 07:20 RDW 13.4 % (11.5-14.5) 01/16/17 07:20 Plt Count 144 K/uL (130-400) 01/16/17 07:20 MPV 10.2 fL (7.2-11.7) 01/16/17 07:20 Neut % (Auto) 54.0 % (50.0-75.0) 01/16/17 07:20 Lymph % (Auto) 23.7 % (20.0-40.0) 01/16/17 07:20 Emmons % (Auto) 7.0 % (0.0-10.0) 01/16/17 07:20 Eos % (Auto) 14.5 % (0.0-4.0) H 01/16/17 07:20 Baso % (Auto) 0.8 % (0.0-2.0) 01/16/17 07:20 Neut # 5.8 K/uL (1.8-7.0) 01/16/17 07:20 Lymph # 2.6 K/uL (1.0-4.3) 01/16/17 07:20 Emmons # 0.8 K/uL (0.0-0.8) 01/16/17 07:20 Eos # 1.6 K/uL (0.0-0.7) H 01/16/17 07:20 Baso # 0.1 K/uL (0.0-0.2) 01/16/17 07:20 APTT 34 SECONDS (21-34) 01/15/17 07:32 Sodium 139 mmol/L (132-148) 01/16/17 07:52 Potassium 3.7 mmol/L (3.6-5.2) 01/16/17 07:52 Chloride 97 mmol/L (98-107) L 01/16/17 07:52 Carbon Dioxide 30 mmol/L (22-30) 01/16/17 07:52 Anion Gap 16 (10-20) 01/16/17 07:52 BUN 12 mg/dL (9-20) 01/16/17 07:52 Creatinine 0.8 MG/DL (0.8-1.5) 01/16/17 07:52 Est GFR ( Amer) > 60 01/16/17 07:52 Est GFR (Non-Af Amer) > 60 01/16/17 07:52 POC Glucose (mg/dL) 91 mg/dL (65-110) 01/16/17 11:20 Random Glucose 95 mg/dL (75-110) 01/16/17 07:52 Hemoglobin A1c 6.1 % (4.2-6.5) 01/15/17 07:32 Calcium 8.8 mg/dl (8.6-10.4) 01/16/17 07:52 Phosphorus 2.8 mg/dL (2.5-4.5) 01/15/17 07:32 Magnesium 2.1 mg/dL (1.6-2.3) 01/15/17 07:32 Total Bilirubin 1.2 mg/dL (0.2-1.3) 01/16/17 07:52 AST 22 U/L (17-59) 01/16/17 07:52 ALT 27 U/L (21-72) 01/16/17 07:52 Alkaline Phosphatase 58 U/L (38-126) 01/16/17 07:52 Troponin I < 0.0120 ng/mL (0.00-0.120) 01/14/17 17:06 Total Protein 6.0 g/dL (6.3-8.3) L 01/16/17 07:52 Albumin 3.4 g/dL (3.5-5.0) L 01/16/17 07:52 Globulin 2.6 gm/dL (2.2-3.9) 01/16/17 07:52 Albumin/Globulin Ratio 1.3 (1.0-2.1) 01/16/17 07:52 Triglycerides 123 mg/dL (0-149) D 01/15/17 07:32 Cholesterol 122 mg/dL (0-199) 01/15/17 07:32 LDL Cholesterol Direct 84 mg/dL (0-129) 01/15/17 07:32 HDL Cholesterol 29 mg/dL (30-70) L 01/15/17 07:32 Free T4 0.87 ng/dL (0.78-2.19) 01/15/17 07:32 TSH 3rd Generation 0.51 mIU/L (0.46-4.68) 01/15/17 07:32 Urine Color Yellow (YELLOW) 01/14/17 17:26 Urine Clarity Clear (Clear) 01/14/17 17:26 Urine pH 5.0 (5.0-8.0) 01/14/17 17:26 Ur Specific [place] 1.020 (1.003-1.030) 01/14/17 17:26 Urine Protein Negative mg/dL (NEGATIVE) 01/14/17 17:26 Urine Glucose (UA) Normal mg/dL (Normal) 01/14/17 17:26 Urine Ketones Negative mg/dL (NEGATIVE) 01/14/17 17:26 Urine Blood Negative (NEGATIVE) 01/14/17 17:26 Urine Nitrate Negative (NEGATIVE) 01/14/17 17:26 Urine Bilirubin Negative (NEGATIVE) 01/14/17 17:26 Urine Urobilinogen Normal mg/dL (0.2-1.0) 01/14/17 17:26 Ur Leukocyte Esterase Neg Rani/uL (Negative) 01/14/17 17:26 Urine WBC (Auto) 1 /hpf (0-5) 01/14/17 17:26 Urine RBC (Auto) 2 /hpf (0-3) 01/14/17 17:26 Ur Squamous Epith Cells < 1 /hpf (0-5) 01/14/17 17:26 - Hospital Course Hospital Course: HPI: 76 year old male with extensive PMHx significant for sciatica, neural foraminal lumbar spine stenosis, hypertension, pacemaker placement ( January 2014), hypercholesterolemia, prostate cancer, nephrolithiasis, and deviated septum presents with chief complaint of lightheadedness and weakness which began earlier in the afternoon. Patient states that he was able to complete several errands with his in the morning without difficulties. Patient states that he took a nap in the early afternoon but then felt lightheaded upon arising from nap. He states that he was not even able to stand without feeling weak. Patient called 911 because he did not feel that he was able to ambulate to the car. He was thus brought in by ambulance. On further questioning, patient admitted to dyspnea with exertion after ambulating approximately 3 blocks. He states that he uses 1 pillow at night to sleep. Patient additionally reports sinus congestion of approximately one week's duration. Patient denied sick contacts however states that he has had this problem on and off for several years secondarily due to a deviated septum. Patient states that he bought a saline solution which he started using a few days ago with minimal relief. At this time, patient denies trauma, chest pain, palpitations headaches, visual changes, paresthesias, nausea, vomiting, leg pain, weight changes, recent long distance travel or appetite changes at this time. Patient was admitted on 01/14/2017 with a complaint of lightheadedness/weakness that began earlier that day, making it difficult to stand up from a reclined position. Patient has a past medical history significant for a cardiac pacemaker , chronic sinusitis, and hypertension. Cardiology consult was placed to Dr. Malvin Holcomb, who ruled out orthostasis/other cardiogenic causes of the patient's symptoms and recommended an ENT consult due to the recurrent sinusitis. ENT consult was placed to Dr. Robbie Jimenez, who recommended the patient be started on outpatient antibiotics and follow up with him outpatient. The patent remained clinically stable throughout the course of hospitalization and is now cleared by his medical team to be discharged to home. Patient is to follow up with ENT outpatient for further evaluation of potential inner ear causes of symptomology. Please discharge patient home, as per Dr. West. Patient is to continue medications as instructed. Patient is to follow up with his Dr. Markie Cardozo in 1 week. Patient is to follow up with Dr. Jimenez in 1 week. If symptoms worsen, patient is to return to the hospital for further evaluation and treatment. Instructions were explained to the patient. Patient understands and agrees. Discharge medications: Augmentin 875mg/125mg PO BID x 7days Continue Home Medications - Date & Time of H&P Date of H&P: 01/13/17 Time of H&P: 13:10 Discharge Exam - Head Exam Head Exam: ATRAUMATIC, NORMOCEPHALIC - Respiratory Exam Respiratory Exam: Clear to PA & Lateral, NORMAL BREATHING PATTERN. absent: Accessory Muscle Use, Stridor - Cardiovascular Exam Cardiovascular Exam: REGULAR RHYTHM, +S1, +S2 Additional comments: Tele showed no abnormalities. Duel paced at approx 60 bpm. - GI/Abdominal Exam GI & Abdominal Exam: Normal Bowel Sounds, Unremarkable. absent: Distended, Firm , Guarding - Neurological Exam Neurological exam: Alert, Normal Gait, Oriented x3 - Psychiatric Exam Psychiatric exam: Normal Affect, Normal Mood - Skin Skin Exam: Dry, Normal Color, Warm Discharge Plan - Discharge Medications Prescriptions: Amoxicillin/Clavulanate [Augmentin 875 MG-125 MG Tab] 1 tab PO Q12 7 Days - Follow Up Plan Condition: STABLE Disposition: HOME/ ROUTINE Instructions: Amoxicillin/Clavulanate Potassium (By mouth), Syncope (DC), Weakness (GEN) Additional Instructions: Please discharge patient home, as per Dr. West. Patient is to continue medications as instructed. Patient is to follow up with his Dr. Markie Cardozo in 1 week. Patient is to follow up with Dr. Jimenez in 1 week. If symptoms worsen, patient is to return to the hospital for further evaluation and treatment. Instructions were explained to the patient. Patient understands and agrees. Discharge medications: Augmentin 875mg/125mg PO BID x 7days Continue Home Medications Referrals: Malvin Holcomb MD [Staff Provider] - Robbie Jimenez MD [Staff Provider] - Prasanna Cardozo MD [Staff Provider] - <Alberto West - Last Filed: 01/17/17 12:56> Provider - Provider Date of Admission: 01/14/17 21:09 Attending physician: Alberto West MD Hospital Course - Lab Results Lab Results: Most Recent Lab Values WBC 10.8 K/uL (4.8-10.8) 01/16/17 07:20 RBC 4.64 Mil/uL (4.40-5.90) 01/16/17 07:20 Hgb 14.7 g/dL (12.0-18.0) 01/16/17 07:20 Hct 43.8 % (35.0-51.0) 01/16/17 07:20 MCV 94.5 fL (80.0-94.0) H 01/16/17 07:20 MCH 31.8 pg (27.0-31.0) H 01/16/17 07:20 MCHC 33.6 g/dL (33.0-37.0) 01/16/17 07:20 RDW 13.4 % (11.5-14.5) 01/16/17 07:20 Plt Count 144 K/uL (130-400) 01/16/17 07:20 MPV 10.2 fL (7.2-11.7) 01/16/17 07:20 Neut % (Auto) 54.0 % (50.0-75.0) 01/16/17 07:20 Lymph % (Auto) 23.7 % (20.0-40.0) 01/16/17 07:20 Emmons % (Auto) 7.0 % (0.0-10.0) 01/16/17 07:20 Eos % (Auto) 14.5 % (0.0-4.0) H 01/16/17 07:20 Baso % (Auto) 0.8 % (0.0-2.0) 01/16/17 07:20 Neut # 5.8 K/uL (1.8-7.0) 01/16/17 07:20 Lymph # 2.6 K/uL (1.0-4.3) 01/16/17 07:20 Emmons # 0.8 K/uL (0.0-0.8) 01/16/17 07:20 Eos # 1.6 K/uL (0.0-0.7) H 01/16/17 07:20 Baso # 0.1 K/uL (0.0-0.2) 01/16/17 07:20 APTT 34 SECONDS (21-34) 01/15/17 07:32 Sodium 139 mmol/L (132-148) 01/16/17 07:52 Potassium 3.7 mmol/L (3.6-5.2) 01/16/17 07:52 Chloride 97 mmol/L (98-107) L 01/16/17 07:52 Carbon Dioxide 30 mmol/L (22-30) 01/16/17 07:52 Anion Gap 16 (10-20) 01/16/17 07:52 BUN 12 mg/dL (9-20) 01/16/17 07:52 Creatinine 0.8 MG/DL (0.8-1.5) 01/16/17 07:52 Est GFR ( Amer) > 60 01/16/17 07:52 Est GFR (Non-Af Amer) > 60 01/16/17 07:52 POC Glucose (mg/dL) 91 mg/dL (65-110) 01/16/17 11:20 Random Glucose 95 mg/dL (75-110) 01/16/17 07:52 Hemoglobin A1c 6.1 % (4.2-6.5) 01/15/17 07:32 Calcium 8.8 mg/dl (8.6-10.4) 01/16/17 07:52 Phosphorus 2.8 mg/dL (2.5-4.5) 01/15/17 07:32 Magnesium 2.1 mg/dL (1.6-2.3) 01/15/17 07:32 Total Bilirubin 1.2 mg/dL (0.2-1.3) 01/16/17 07:52 AST 22 U/L (17-59) 01/16/17 07:52 ALT 27 U/L (21-72) 01/16/17 07:52 Alkaline Phosphatase 58 U/L (38-126) 01/16/17 07:52 Troponin I < 0.0120 ng/mL (0.00-0.120) 01/14/17 17:06 Total Protein 6.0 g/dL (6.3-8.3) L 01/16/17 07:52 Albumin 3.4 g/dL (3.5-5.0) L 01/16/17 07:52 Globulin 2.6 gm/dL (2.2-3.9) 01/16/17 07:52 Albumin/Globulin Ratio 1.3 (1.0-2.1) 01/16/17 07:52 Triglycerides 123 mg/dL (0-149) D 01/15/17 07:32 Cholesterol 122 mg/dL (0-199) 01/15/17 07:32 LDL Cholesterol Direct 84 mg/dL (0-129) 01/15/17 07:32 HDL Cholesterol 29 mg/dL (30-70) L 01/15/17 07:32 Free T4 0.87 ng/dL (0.78-2.19) 01/15/17 07:32 TSH 3rd Generation 0.51 mIU/L (0.46-4.68) 01/15/17 07:32 Urine Color Yellow (YELLOW) 01/14/17 17:26 Urine Clarity Clear (Clear) 01/14/17 17:26 Urine pH 5.0 (5.0-8.0) 01/14/17 17:26 Ur Specific [place] 1.020 (1.003-1.030) 01/14/17 17:26 Urine Protein Negative mg/dL (NEGATIVE) 01/14/17 17:26 Urine Glucose (UA) Normal mg/dL (Normal) 01/14/17 17:26 Urine Ketones Negative mg/dL (NEGATIVE) 01/14/17 17:26 Urine Blood Negative (NEGATIVE) 01/14/17 17:26 Urine Nitrate Negative (NEGATIVE) 01/14/17 17:26 Urine Bilirubin Negative (NEGATIVE) 01/14/17 17:26 Urine Urobilinogen Normal mg/dL (0.2-1.0) 01/14/17 17:26 Ur Leukocyte Esterase Neg Rani/uL (Negative) 01/14/17 17:26 Urine WBC (Auto) 1 /hpf (0-5) 01/14/17 17:26 Urine RBC (Auto) 2 /hpf (0-3) 01/14/17 17:26 Ur Squamous Epith Cells < 1 /hpf (0-5) 01/14/17 17:26 Attending/Attestation - Attestation I have personally seen and examined this patient.: Yes I have fully participated in the care of the patient.: Yes I have reviewed all pertinent clinical information, including history, physical exam and plan: Yes Notes (Text): 01/17/17 12:56 Patient was seen and examined at bedside with the resident Patient is feeling much better He denies any dizziness He denies any disequilibrium Patient was evaluated by ENT and the recommended to start Augmentin We will discharge the patient on Augmentin and output and follow-up with the ENT.
== END 2017-01-16 14:29 | disposition home or self-care (01) | DRG 153 ==
LOC: C.ER 16:34 → C.6T 21:09
PROVIDERS: ADMIT Internal Medicine; ATTEND Internal Medicine
DX: J01.41 Acute recurrent pansinusitis (principal); E11.22 Type 2 diabetes mellitus with diabetic chronic kidney disease; I35.0 Nonrheumatic aortic (valve) stenosis; I12.9 Hypertensive chronic kidney disease with stage 1 through stage 4 chronic kidney disease, or unspecified chronic kidney disease; J32.4 Chronic pansinusitis; M48.06 Spinal stenosis, lumbar region; E78.00 Pure hypercholesterolemia, unspecified; J34.2 Deviated nasal septum; R42 Dizziness and giddiness; N18.9 Chronic kidney disease, unspecified; Z95.0 Presence of cardiac pacemaker; Z80.7 Family history of other malignant neoplasms of lymphoid, hematopoietic and related tissues; Z87.891 Personal history of nicotine dependence; Z79.82 Long term (current) use of aspirin; Z83.3 Family history of diabetes mellitus; Z85.46 Personal history of malignant neoplasm of prostate; Z87.442 Personal history of urinary calculi; Z85.828 Personal history of other malignant neoplasm of skin

== ENCOUNTER 2017-01-23 22:07 | Emergency (ER) | payer MEDICARE, OTHER ==
[2017-01-23 22:07] VITALS: BMI 32.5
[2017-01-23 22:21] VITALS: TEMP 98.4
--- NOTE | 2017-01-23 22:35 | C.PDOC ---
History Of Present Illness The patient presents to the ED for evaluation of a foreign body sensation in his throat which began earlier today. Patient admits he ate salmon for dinner tonight and he now "feels something in his throat when he swallows." Otherwise, he denies fever, chills, nausea, vomiting. Time Seen by Provider: 01/23/17 22:33 Chief Complaint (Nursing): ENT Problem History Per: Patient History/Exam Limitations: None Onset/Duration Of Symptoms: Hrs Current Symptoms Are (Timing): Still Present Quality (Mouth/Throat): Other (+foreign body sensation ) Severity: Mild Pain Scale Rating Of: 3 Past Medical History Reviewed: Historical Data, Nursing Documentation, Vital Signs Vital Signs: Last Vital Signs Temp 98.4 F 01/23/17 22:16 Pulse 70 01/23/17 22:16 Resp 16 01/23/17 22:16 BP 130/82 01/23/17 22:16 Pulse Ox 95 01/24/17 00:02 - Medical History PMH: Diabetes, Gall Bladder Disease (GB removed), HTN, Hypercholesterolemia, Kidney Stones, Malignancy (prostate), Chronic Kidney Disease Surgical History: Appendectomy, Cholecystectomy, Pacemaker (2014), Tonsillectomy - [facility] Procedures ENDO RECTUM POLYPECTOMY (11/02/13) INITIAL INSERT TRANS LEADS INTO ATRIUM & VENTRICLE (01/31/14) INITIAL INSERTION OF DUAL-CHAMBER DEVICE (01/31/14) Family History: States: Unknown Family Hx - Social History Hx Tobacco Use: No Hx Alcohol Use: Yes (OCCASSIONALLY) Hx Substance Use: No - Immunization History Hx Tetanus Toxoid Vaccination: No Hx Influenza Vaccination: Yes Hx Pneumococcal Vaccination: Yes Review Of Systems Constitutional: Negative for: Fever, Chills ENT: Positive for: Other (+foreign body sensation in throat ). Negative for: Throat Pain, Throat Swelling Respiratory: Negative for: Cough, Shortness of Breath Gastrointestinal: Negative for: Nausea, Vomiting, Abdominal Pain Skin: Negative for: Rash, Lesions, Jaundice, Bruising Physical Exam - Physical Exam Appears: Non-toxic, No Acute Distress, Other (patient is speaking in complete sentences and tolerating his own secretions ) Skin: Warm, Dry Head: Normacephalic Eye(s): bilateral: Normal Inspection Oral Mucosa: Moist, No Drooling Throat: Normal, No Erythema, No Exudate, Mass (? swelling left pharyngeal recess ), Other (+oropharynx visualized through uvula with no visible evidence of foreign body ) Neck: Supple Chest: Symmetrical, No Deformity, No Tenderness Cardiovascular: Rhythm Regular, No Murmur Respiratory: No Rales, No Rhonchi, No Wheezing Gastrointestinal/Abdominal: Soft, No Tenderness Extremity: Normal ROM, Capillary Refill (less than 2 seconds ) Neurological/Psych: Oriented x3, Normal Speech, Normal Cognition Gait: Steady ED Course And Treatment O2 Sat by Pulse Oximetry: 95 (on RA) Pulse Ox Interpretation: Normal - CT Scan/US CT Neck Other Rad Studies (CT/US): Interpreted By Me, Read By Radiologist CT/US Interpretation: EXAM: CT Neck Without Intravenous Contrast. CLINICAL HISTORY: 76 years old, male; Signs and symptoms; Dysphagia / difficulty swallowing; Additional info: Dysphagia, had salmon for dinner. TECHNIQUE: Axial computed tomography images of the neck without intravenous contrast. All CT scans at this. facility use one or more dose reduction techniques, viz.: automated exposure control; ma/kV. adjustment per patient size (including targeted exams where dose is matched to indication; i.e. head);. or iterative reconstruction technique. Coronal and sagittal reformatted images were created and reviewed. COMPARISON: No relevant prior studies available. FINDINGS: Nasopharynx: Unremarkable. Oropharynx: Asymmetry is detected within the oropharynx, to the left of midline within the. pharyngeal recess and salpingo- pharyngeal fold with a rounded area of decreased attenuation. measuring 15 x 12 x 13 mm. No significant tonsillar enlargement. Hypopharynx: Unremarkable. Larynx: Normal epiglottis. Trachea: Unremarkable. Retropharyngeal space: Unremarkable. Submandibular/parotid glands: Unremarkable. Glands are normal in size. Thyroid: Unremarkable. No enlarged or calcified nodules. Bones/joints: No acute fracture. Soft tissues: Symmetric. Vasculature: No acute findings. Lymph nodes: Scattered subcentimeter lymph nodes within the bilateral cervical chains, nonspecific. finding. Lung apices: Unremarkable as visualized. Near- complete opacification of the left maxillary sinus. The right maxillary sinus is unremarkable. IMPRESSION: Asymmetry of the posterior oropharynx, to the left of midline (as detailed above), for which direct. visualization is recommended. Progress Note: CT Neck ordered. Pt has appointment with dr jimenez in am 01/25/17 Disposition Counseled Patient/Family Regarding: Studies Performed, Diagnosis, Need For Followup - Disposition Referrals: Robbie Jimenez MD [Staff Provider] - Disposition: HOME/ ROUTINE Disposition Time: 22:34 Condition: FAIR Instructions: Dysphagia (ED) Forms: [facility] (Pashto) - Clinical Impression Clinical Impression: Throat pain in adult - Scribe Statement The provider has reviewed the documentation as recorded by the Scribe (Kristie Cardozo) Provider Attestation: All medical record entries made by the Scribe were at my direction and personally dictated by me. I have reviewed the chart and agree that the record accurately reflects my personal performance of the history, physical exam, medical decision making, and the department course for this patient. I have also personally directed, reviewed, and agree with the discharge instructions and disposition.
--- NOTE | 2017-01-23 23:50 | CT ---
EXAM: CT Neck Without Intravenous Contrast CLINICAL HISTORY: 76 years old, male; Signs and symptoms; Dysphagia / difficulty swallowing; Additional info: Dysphagia, had salmon for dinner TECHNIQUE: Axial computed tomography images of the neck without intravenous contrast. All CT scans at this facility use one or more dose reduction techniques, viz.: automated exposure control; ma/kV adjustment per patient size (including targeted exams where dose is matched to indication; i.e. head); or iterative reconstruction technique. Coronal and sagittal reformatted images were created and reviewed. COMPARISON: No relevant prior studies available. FINDINGS: Nasopharynx: Unremarkable. Oropharynx: Asymmetry is detected within the oropharynx, to the left of midline within the pharyngeal recess and salpingo-pharyngeal fold with a rounded area of decreased attenuation measuring 15 x 12 x 13 mm. No significant tonsillar enlargement. Hypopharynx: Unremarkable. Larynx: Normal epiglottis. Trachea: Unremarkable. Retropharyngeal space: Unremarkable. Submandibular/parotid glands: Unremarkable. Glands are normal in size. Thyroid: Unremarkable. No enlarged or calcified nodules. Bones/joints: No acute fracture. Soft tissues: Symmetric Vasculature: No acute findings. Lymph nodes: Scattered subcentimeter lymph nodes within the bilateral cervical chains, nonspecific finding. Lung apices: Unremarkable as visualized. Near-complete opacification of the left maxillary sinus. The right maxillary sinus is unremarkable. IMPRESSION: Asymmetry of the posterior oropharynx, to the left of midline (as detailed above), for which direct visualization is recommended.
[2017-01-24 00:56] VITALS: BP 134/88; PULSE 88; RESP 20; O2SAT 99
== END 2017-01-24 00:53 | disposition home or self-care (01) ==
LOC: C.ER 22:07
DX: R07.0 Pain in throat (principal)

== ENCOUNTER 2017-05-18 12:17 | Emergency (ER) | payer MEDICARE, OTHER ==
[2017-05-18 12:17] VITALS: BMI 32.5
[2017-05-18 12:41] VITALS: RESP 18; TEMP 97.9; O2SAT 96
--- NOTE | 2017-05-18 12:57 | C.PDOC ---
History Of Present Illness 77 year old male complains of left knee pain after twisting his knee while going up the stairs 2 days ago. He took an aleve and applied ice to area. He continues to complain of aching pain worse with bending or walking. Denies any other injury, numbness or weakness. Time Seen by Provider: 05/18/17 12:50 Chief Complaint (Nursing): Lower Extremity Problem/Injury History Per: Patient History/Exam Limitations: no limitations Onset/Duration Of Symptoms: Days (3) - Knee Description Of Injury: Twisted Past Medical History Reviewed: Historical Data, Nursing Documentation, Vital Signs Vital Signs: Last Vital Signs Temp 97.9 F 05/18/17 12:38 Pulse 62 05/18/17 12:38 Resp 18 05/18/17 12:38 BP 136/90 05/18/17 12:38 Pulse Ox 96 05/18/17 13:00 - Medical History PMH: Diabetes, Gall Bladder Disease (GB removed), HTN, Hypercholesterolemia, Kidney Stones, Malignancy (prostate), Chronic Kidney Disease Surgical History: Appendectomy, Cholecystectomy, Pacemaker (2014), Tonsillectomy - [facility] Procedures ENDO RECTUM POLYPECTOMY (11/02/13) INITIAL INSERT TRANS LEADS INTO ATRIUM & VENTRICLE (01/31/14) INITIAL INSERTION OF DUAL-CHAMBER DEVICE (01/31/14) Family History: States: Unknown Family Hx - Social History Hx Tobacco Use: No Hx Alcohol Use: Yes (OCCASSIONALLY) Hx Substance Use: No - Immunization History Hx Tetanus Toxoid Vaccination: No Hx Influenza Vaccination: Yes Hx Pneumococcal Vaccination: Yes Review Of Systems Except As Marked, All Systems Reviewed And Found Negative. Musculoskeletal: Positive for: Other (knee pain) Physical Exam - Physical Exam Appears: Non-toxic, No Acute Distress Skin: Warm, Dry, No Ecchymosis Head: Atraumatic, Normacephalic Eye(s): bilateral: Normal Inspection Neck: Normal ROM Chest: Symmetrical Pulses: Left Dorsalis Pedis: Normal Neurological/Psych: Oriented x3, Normal Speech Gait: Unable To Assess Additional Physical Exam Comments: Right lower extremity: Knee mildly tender to medial aspect. Pain with extension of the knee joint. No laxity on valgus/varus stress. No swelling, deformity, erythema or tactile warmth. No calf tenderness. No pedal edema. All other Extremities are nontender with normal ROM and no swelling. ED Course And Treatment O2 Sat by Pulse Oximetry: 96 Medical Decision Making Medical Decision Making: Impression: knee pain and injury Plan: Xray of knee. Patient declined any pain medicine Progress: Xray viewed by me showing no acute fracture or dislocation, degenerative joint disease, no effusion Re-Eval: Patient seated in no distress. Knee immobilizer applied by RN. Physical therapist came to evaluate patient and instruct on walker use, since patient cannot use crutches and has pain with ambulation. Provide copy of xray report. Recommend rest and analgesics and to follow up with orthopedic if the pain persists Disposition Counseled Patient/Family Regarding: Studies Performed, Diagnosis, Need For Followup, Rx Given - Disposition Referrals: Prasanna Cardozo MD [Staff Provider] - Ori Whitt III, MD [Staff Provider] - Disposition: HOME/ ROUTINE Disposition Time: 14:04 Condition: STABLE Additional Instructions: Your xray shows arthritis, no fracture. Copy of report was provided to you. Please apply ice to area 15 minutes three times a day. Take Naproxen as needed for pain every 12 hours, with food to not upset stomach. Follow up with orthopedic if pain persists over one week. Prescriptions: Naproxen [Naprosyn] 1 tab PO Q12 #25 tab NS Instructions: Knee Exercises (GEN), Knee Sprain (ED) Forms: [facility] (Sinhala) - POA Present On Arrival: None - Clinical Impression Clinical Impression: Arthralgia of knee, left, Knee sprain
--- NOTE | 2017-05-18 13:56 | RAD ---
PROCEDURE: Left Knee Radiographs. HISTORY: COMPARISON: None available. FINDINGS: Rotated lateral view. BONES: No acute displaced fracture. Degenerative changes including tenting of the intercondylar notch. Osteophyte formation anterior superior tibia seen on lateral view. JOINTS: No dislocation. JOINT EFFUSION: No significant joint effusion. OTHER FINDINGS: Dense vascular calcifications. IMPRESSION: Degenerative changes. No acute displaced fracture, dislocation, or significant joint effusion identified.If symptoms persist, or if there is continued clinical concern, x-ray follow-up in 7-10 days should be considered.
[2017-05-18 14:28] VITALS: BP 142/89; PULSE 68
== END 2017-05-18 14:28 | disposition home or self-care (01) ==
LOC: C.ER 12:17
DX: S83.92XA Sprain of unspecified site of left knee, initial encounter (principal); X50.1XXA Overexertion from prolonged static or awkward postures, initial encounter; M25.562 Pain in left knee; E78.00 Pure hypercholesterolemia, unspecified; I12.9 Hypertensive chronic kidney disease with stage 1 through stage 4 chronic kidney disease, or unspecified chronic kidney disease; N18.9 Chronic kidney disease, unspecified; Z85.46 Personal history of malignant neoplasm of prostate
CPT/HCPCS: 73562; 97116; 97161; 99284; G8978; G8979; G8980